=== PATIENT | female | born 1990 | race African-American/Black ===

== ENCOUNTER 2018-07-09 22:39 | Inpatient (IN) ==
[2018-07-09 23:39] LABS: URINE SOURCE VOIDED
[2018-07-09 23:44] LABS: BILIRUBIN URINE NEGATIVE (NEGATIVE); BLOOD URINE TRACE (NEGATIVE); CLARITY CLEAR (CLEAR); COLOR YELLOW; GLUCOSE URINE NEGATIVE (NEGATIVE); KETONE URINE 3+(Large) mg/dL (NEGATIVE); LEUKOCYTES URINE 2+ (NEGATIVE); NITRITE URINE NEGATIVE (NEGATIVE); PH URINE 6.5; PROTEIN URINE TRACE mg/dL (NEGATIVE); UROBILINOGEN URINE 4 mg/dL
[2018-07-10] MEDS ORDERED: PITOCIN ONE (01:34)
[2018-07-10] MEDS ORDERED: PITOCIN 30 UNITS/NS 30 UNIT/500 ML IV.SOLN IV SCH (01:40)
[2018-07-10] MEDS ORDERED: PITOCIN 20 UNITS/NS 20 UNITS/1,000 ML IV.SOLN IV SCH (01:40)
[2018-07-10] MEDS ORDERED: PITOCIN IM PRN (01:40)
[2018-07-10] MEDS ORDERED: PITOCIN 30 UNITS/NS 30 UNIT/500 ML IV.SOLN ONE (01:43)
[2018-07-10] MEDS ORDERED: PITOCIN 20 UNITS/NS 20 UNITS/1,000 ML IV.SOLN ONE (02:16)
[2018-07-10] MEDS ORDERED: BENADRYL IV PRN (03:08)
[2018-07-10] MEDS ORDERED: PERI MEDS (DERMOPLAST/NUPERCAINAL/TUCKS) MISC PRN (03:08)
[2018-07-10] MEDS ORDERED: M-M-R II VACCINE SUBQ ONE (03:08)
[2018-07-10] MEDS ORDERED: ATARAX PO PRN (03:08)
[2018-07-10] MEDS ORDERED: MINERAL OIL PO PRN (03:08)
[2018-07-10] MEDS ORDERED: BENADRYL PO PRN (03:08)
[2018-07-10] MEDS ORDERED: AMBIEN PO PRN (03:08)
[2018-07-10] MEDS ORDERED: HYDROXYZINE IM PRN (03:08)
[2018-07-10] MEDS ORDERED: XYLOCAINE-MPF 1% INJ PRN (03:08)
[2018-07-10] MEDS ORDERED: BOOSTRIX VACCINE IM ONE (03:08)
[2018-07-10] MEDS ORDERED: CYTOTEC PO PRN (03:08)
[2018-07-10] MEDS ORDERED: TYLENOL PO PRN (03:11)
--- NOTE | 2018-07-10 03:28 | HISTORY AND PHYSICAL ---
CHIEF COMPLAINT: Contractions with precipitous delivery. HISTORY OF PRESENT ILLNESS: The patient is a 27-year-old, G 4, P 3 female with an EDC of 07/12/2018, putting her at 39 weeks and 5 days gestation. She states that contractions started around 6:00 to 7:00 p.m. on 07/09/2018. They had gotten stronger so she presented to labor and delivery. At 10:50 p.m., she was checked and found to be 2, 80, and -2. On recheck at 12:10 a.m., she was found to be 3, 80, and -2. Contractions were irregular at every 3 to 5 minutes. Multiparous with irregular contractions and minimal change therefore, instructed nursing to have patient ambulate some if she desired and continue monitoring. Per nursing, the patient had just gotten up and started to walk, had spontaneous rupture of membranes while walking, and delivered the baby 2 minutes after her water broke. PAST MEDICAL HISTORY: Unremarkable except for a history of anemia and . SURGICAL HISTORY: None. MEDICATIONS: vitamins and iron. SOCIAL HISTORY: She denies tobacco use, alcohol use, and drug use. FAMILY MEDICAL HISTORY: Unremarkable per patient. OBSTETRIC HISTORY: G 4, P 3, all vaginal delivery, all full-term. PHYSICAL EXAMINATION: GENERAL: Alert and oriented x3. No acute distress. CARDIOVASCULAR: Regular rate and rhythm. LUNGS: Clear to auscultation bilaterally. ABDOMEN: Bowel sounds present. Soft, nondistended. Appropriately tender. Uterus palpated. PELVIC EXAMINATION: I was present for delivery of placenta. Please see delivery note. EXTREMITIES: No calf pain. No edema. LABS: All lab work just drawn and pending. ASSESSMENT: A 27-year-old, 4, para 3, at 39 weeks and 5 days with precipitous delivery. PLAN: 1. IM Pitocin was given with delivery of placenta. IV started post IM pitocin. 2. All lab work still pending. 3. Nursery notified. The patient has a GBS positive status and delivered within 2 minutes of breaking her water. cc: Chandrika Lee MD [facility]OSPITALFrancisca
[2018-07-10 03:37] LABS: BASO# 0.01 X1000 (0.0-0.2); BASO% 0.1 % (0.0-0.8); EOS# 0.02 X1000 (0.0-0.7); EOS% 0.2 % (0.0-10.0); HEMOGLOBIN 10.5 g/dL (12.0-16.0); IMM GRAN# 0.11 X1000 (0.0-0.04); IMM GRAN% 1.1 % (0.0-0.5); LYMPH# 1.61 X1000 (1.2-3.4); LYMPH% 16.6 % (20.5-51.1); MCH 25.3 PG (27-31); MCHC 31.8 g/dL (33-37); MCV 79.5 FL (81-99); MONO# 0.85 X1000 (0.11-0.59); MONO% 8.8 % (1.7-9.3); MPV 10.7 FL (7.4-10.4); NEUT# 7.09 X1000 (1.4-6.5); NEUT% 73.2 % (42.2-75.2); PLT 248 X1000 (130-400); RBC 4.15 XMIL (4.2-5.4); RDW 15.5 % (11.5-14.5); WBC 9.69 X1000 (4.8-10.8)
[2018-07-10] MEDS: MOTRIN PO PRN ×2 (03:53→23:32)
--- NOTE | 2018-07-10 04:18 | OPERATIVE NOTE ---
PROCEDURE DATE: 07/10/2018 DELIVERY SUMMARY: The patient is a G4, P3, 27-year-old, who presented to Labor and Delivery at 39 weeks and 5 days' gestation, with a due date of 07/12/2018. She stated her contractions started approximately 6 to 7 p.m. on 07/09/2018. She arrived to Labor and Delivery, and check at 10:50 p.m. was 2, 80, -2, with contractions irregular at every 3 to 5 minutes. On recheck at 12:10 a.m., she was just slightly more dilated at 3, 80, and -2, still roro irregularly at 3 to 5 minutes. Instructions were given to have the patient walk, and continue to evaluate her. She had just gotten up to walk, and had spontaneous rupture of membranes at 1: 20 a[address] in the hallway. Nursing staff went down the hallway with a wheelchair, as they heard her water break. She had a spontaneous vaginal delivery at 1:22 a.m. in the wheelchair as they were wheeling her to the closest room. was male, 6 pounds 12 ounces, Apgars of 9 and 10. I was called at 1:33 am after the patient delivered, and arrived at 1:35 a.m. The patient was lying in bed comfortably. Placenta was still intact and not delivered. Sterile towel placed upon the patient's abdomen. I did put some downward traction on the placenta, which was still somewhat adherent. She did not have an IV in place. I ordered for IV to work on being getting started. With uterine massage and gentle downward traction, the placenta did end up delivering at 1: 42 a.m. spontaneously. Twenty units of Pitocin were given IM at the time of placental delivery. The patient still was having some vaginal bleeding with uterine massage. I therefore did a uterine exploration. She had a significant amount of clot in the lower uterine segment, which was cleared. The uterus was explored. I felt no retained products of conception. With continued uterine massage, the uterus started to firm up. IV was started, and Pitocin through the IV was run. Total EBL was estimated at approximately 250 mL. On examination of the introitus, there were just superficial skin lacerations that were hemostatic with a minimal amount of pressure. No sutures were placed. The uterus continued to be firm post delivery. Both mother and baby were doing well. Baby with some facial bruising noted due to precipitous delivery. Nursery notified of GBS positive status and no antibiotics. cc: Chandrika Lee MD [facility]TDD
[2018-07-10 13:51] LABS: BASO# 0.01 X1000 (0.0-0.2); BASO% 0.1 % (0.0-0.8); EOS# 0.01 X1000 (0.0-0.7); EOS% 0.1 % (0.0-10.0); HEMATOCRIT 29.4 % (37.0-47.0); HEMOGLOBIN 9.4 g/dL (12.0-16.0); IMM GRAN# 0.08 X1000 (0.0-0.04); IMM GRAN% 0.6 % (0.0-0.5); LYMPH# 2.42 X1000 (1.2-3.4); LYMPH% 17.2 % (20.5-51.1); MCH 25.2 PG (27-31); MCV 78.8 FL (81-99); MONO# 1.35 X1000 (0.11-0.59); MONO% 9.6 % (1.7-9.3); MPV 10.3 FL (7.4-10.4); NEUT# 10.18 X1000 (1.4-6.5); NEUT% 72.4 % (42.2-75.2); PLT 238 X1000 (130-400); RBC 3.73 XMIL (4.2-5.4); RDW 15.3 % (11.5-14.5); WBC 14.05 X1000 (4.8-10.8)
[2018-07-10] MEDS: PERICOLACE PO SCH (23:32)
[2018-07-11] MEDS ORDERED: FLU VACCINE IM ONE (09:17)
--- NOTE | 2018-07-11 09:18 | PROGRESS NOTE ---
DATE: 07/11/2018 SUBJECTIVE: No complaints. Denies -induced hypertension or orthostatic symptoms. OBJECTIVE: Vital Signs: Temperature 97 degrees, heart rate 81, respirations 18, blood pressure 98/54, O2 saturation 99% on room air. General: Alert, oriented, no acute distress. Pulmonary: Clear to auscultation bilaterally. CARDIOVASCULAR: Regular rate and rhythm. Abdomen: Soft, nondistended. Fundus firm. Normal lochia. Extremities: No clubbing, cyanosis, or edema. LABORATORIES: White count 14.05, hemoglobin 9.4, hematocrit 29.4, platelets 238,000. ASSESSMENT AND PLAN: Ms. Morrison is a 27-year-old, 4, now para 4, day #1, status post spontaneous vaginal delivery, doing well. PLAN: 1. Ambulate. 2. care. 3. Anticipate discharge home on 07/12/2018. cc: MD Chandrika Jay MD
[2018-07-11] MEDS: MOTRIN PO PRN (12:31)
[2018-07-11] MEDS: PERICOLACE PO SCH (20:41)
[2018-07-12 08:42] VITALS: BP 122/67
--- NOTE | 2018-07-13 08:07 | DISCHARGE SUMMARY ---
ADMISSION DATE: 07/10/2018 DISCHARGE DATE: 07/12/2018 ADMISSION DIAGNOSIS: A 27-year-old female G4, P3 at 39 weeks and 5 days with active labor and precipitous delivery. PROCEDURES: Spontaneous vaginal delivery. BRIEF HISTORY: The patient 27-year-old black female G4, P3, who presents at 39 weeks and 5 days gestation with complaints of uterine contractions, and she presented to labor delivery when they became stronger. She was initially checked and was 2 cm dilated, 80% effaced, and -2 station, and then she had changed to 3 cm an hour and half later. The patient began walking and then had spontaneous rupture of membranes and delivered the baby 2 minutes after her water broke. PAST MEDICAL HISTORY: Unremarkable except for anemia. SURGICAL HISTORY: None. MEDICATIONS: vitamins and iron. SOCIAL HISTORY: Tobacco use none. Alcohol use none. FAMILY MEDICAL HISTORY: Unremarkable. OB HISTORY: G4, P3, spontaneous vaginal delivery x3. PHYSICAL EXAM: Vital signs: Afebrile. Vital signs stable. General: Alert and oriented x3 in no acute distress. Cardiovascular: Regular rate and rhythm. Lungs: Clear to auscultation. Abdomen: Gravid, nontender. Pelvic: Initial exam, cervix was 2 cm, 80% effaced, and -2 station. Extremities: No calf pain. No edema. ASSESSMENT: A 27-year-old G4, now P4 with precipitous labor and delivery. The patient was given intramuscular Pitocin after delivery of the placenta. Intravenous started and then was given more Pitocin through the intravenous. HOSPITAL COURSE: The patient had a spontaneous vaginal delivery of a male , 6 pounds 12 ounces with Apgars of 9 and 10 at 1:42 over an intact perineum. The patient's course was unremarkable. She was ambulatory, and had stable vital signs and had a normal appetite. Her laboratory studies showed she is has anemia, and was continued on iron throughout the hospital course. I felt the patient could be discharged on day 2. DISCHARGE INSTRUCTIONS: Patient is to be discharged home. Follow up in 6 [address] for check [address] Dr. Garcia. The patient is instructed on pelvic rest for the next 6 weeks, and she was instructed to continue with vitamins, if she wishes to continue with breast feeding. The patient was given prescriptions for [employer] 5, Colace 100 mg, iron sulfate 325 mg, and Motrin 800 mg. cc: MD Chandrika Childs III, MD
== END 2018-07-12 13:31 | disposition home or self-care (01) | DRG 807 ==
LOC: P.NBC 22:39 → P.LD 22:41
PROVIDERS: ADMIT Obstetrics & Gynecology; ATTEND Obstetrics & Gynecology
CPT/HCPCS: 81003; 85025; 86592; 90686; 90707; A9270; J2590